=== PATIENT | female | born 1960 | race Caucasian/White ===

== ENCOUNTER 2025-01-12 15:30 | Outpatient (RCR) | payer BC, SELFPAY | END 2025-04-27 11:52 | disposition home or self-care (01) | PROVIDERS: PCP Family Medicine; Visit Provider Family Medicine | DX: M54.41 Lumbago with sciatica, right side (principal); G89.29 Other chronic pain; Z51.89 Encounter for other specified aftercare | CPT/HCPCS: 97012; 97032; 97110; 97140; 97161 ==

== ENCOUNTER 2025-02-06 09:11 | Outpatient (CLI) | payer BC, SELFPAY ==
--- NOTE | 2025-02-06 09:15 | MR_ITS ---
[address] [address] Phone:?[phone] Fax:?[phone] Referring Physician Information: Sam Shankar M.D. [id number] [facility] [address] Phone:?[phone] Fax:?[phone] Patient:Reyes Wasserman D.O.B:?1960 Sex:?Female Phone:?[phone] [facility] MRN:?[id number] Exam Date:?02/06/2025 EXAM: MRI EXAMINATION OF THE RIGHT KNEE CLINICAL INFORMATION: Right knee pain. No specific injury. No history of surgery to this area. Possible internal derangement. TECHNICAL INFORMATION: Coronal PD and STIR. Axial PD and T2 fat saturation. Sagittal PD and PD fat saturation images acquired. No prior studies for comparison. INTERPRETATION: Bones: There is a tiny subchondral cyst which involves anterior weightbearing surface of the medial femoral condyle. Localized subchondral cystic change involves the patella. No occult fracture or AVN. No other abnormal bone marrow edema pattern is identified. Ligaments and tendons: The medial collateral ligament is intact, without acute sprain or tear. The iliotibial band, fibular collateral ligament, biceps femoris tendon and popliteus tendon all are intact. The anterior cruciate ligament is intact without acute sprain or tear. The posterior cruciate ligament is intact. Extensor Mechanism: The patellar and quadriceps tendons are intact. The medial and lateral retinacula are intact. Knee Joint: There is no knee joint effusion. There is a small and slender popliteal cyst. There is no discrete loose body seen within the joint. Medial Compartment: There is no evidence for discrete medial meniscal tear. No displaced flap fragment or parameniscal cyst. There is no focal chondral defect. 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 Lateral Compartment: Undersurface tear is identified involving the mid to anterior body of the lateral lateral meniscus. Predominant horizontal tearing throughout the anterior horn with tearing continuing into the anterior root insertion. There are several parameniscal cysts over 2.1 cm alongside the periphery of the anterior horn. No evidence for a flap fragment. There is no focal chondral defect. No other significant changes of chondromalacia. Patellofemoral articulation: There is a small segment of grade 3 to IV chondromalacia and subchondral cystic change superior to the mid surface of the medial patellar facet. Associated mild irregularity of the subchondral bone. No other significant chondromalacia. CONCLUSION: 1. Tearing involves the mid to anterior body of the lateral meniscus as well as continuing throughout the anterior horn and into the anterior root insertion. Several parameniscal cysts measuring 2.1 cm in total along the periphery of the anterior horn. 2. No medial meniscal tear. 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 3. There is a small segment of grade III to IV chondromalacia with subchondral osseous irregularity and cystic change involving the medial patellar facet. 4. The cruciate ligaments are intact. No other residua of a ligament or involving knee. 5. No evidence for joint effusion or loose body. KES Electronically signed on 02/06/2025 1:11:00 PM by Jax Chowdhury M.D.
== END 2025-02-06 09:12 | disposition home or self-care (01) ==
PROVIDERS: PCP Family Medicine; Visit Provider Orthopaedic Surgery Sports Medicine
DX: M25.561 Pain in right knee (principal); S83.281A Other tear of lateral meniscus, current injury, right knee, initial encounter; M94.261 Chondromalacia, right knee; M22.41 Chondromalacia patellae, right knee
CPT/HCPCS: 73721

== ENCOUNTER 2025-08-25 09:26 | Outpatient (CLI) | payer BC, SELFPAY | END 2025-08-25 09:27 | disposition home or self-care (01) | LOC: INJ CL 09:27 | PROVIDERS: PCP Family Medicine; Visit Provider Family Medicine | DX: M54.16 Radiculopathy, lumbar region (principal); M51.369 Other intervertebral disc degeneration, lumbar region without mention of lumbar back pain or lower extremity pain | CPT/HCPCS: 64483; J1100; Q9966 ==